=== PATIENT | male | born 1990 | race Caucasian/White ===

== ENCOUNTER 2024-05-15 21:34 | Emergency (ER) | payer SELFPAY ==
[2024-05-15] MEDS ORDERED: Ketorolac Tromethamine 30 MG (1 mL) VIAL ONE (21:50)
[2024-05-15] MEDS ORDERED: Boostrix 0.5 ML (Tdap) VIAL (>/=7 yrs of age) ONE (21:59)
[2024-05-15] MEDS ORDERED: Bacitracin 1 PK ONE ×2 (22:44→22:48)
== END 2024-05-15 23:09 | disposition home or self-care (01) ==
LOC: ERS 21:34
DX: S61.215A Laceration without foreign body of left ring finger without damage to nail, initial encounter (principal); S60.411A Abrasion of left index finger, initial encounter; S60.413A Abrasion of left middle finger, initial encounter; W23.1XXA Caught, crushed, jammed, or pinched between stationary objects, initial encounter; Y99.0 Civilian activity done for income or pay; Z23 Encounter for immunization
CPT/HCPCS: 90471; 90715; 96372; J1885